=== PATIENT | male | born 1945 | race Caucasian/White ===

== ENCOUNTER → 2023-07-15 11:04 | Outpatient (REF) | payer OTHER, SELFPAY | LOC: RAD 11:04 | PROVIDERS: ATTENDING PHYSICIAN Internal Medicine Cardiovascular Disease; FAMILY PHYSICIAN Family Medicine | DX: I10 Essential (primary) hypertension (principal); R06.02 Shortness of breath; Z95.5 Presence of coronary angioplasty implant and graft | CPT/HCPCS: 71046 ==

== ENCOUNTER → 2023-09-12 12:24 | Outpatient (REF) | payer OTHER, SELFPAY | LOC: RSP 12:24 | PROVIDERS: ATTENDING PHYSICIAN Internal Medicine Cardiovascular Disease; FAMILY PHYSICIAN Family Medicine | DX: I10 Essential (primary) hypertension (principal); R06.02 Shortness of breath; Z95.2 Presence of prosthetic heart valve | CPT/HCPCS: 94727; 94729; 88738; 94010 ==

== ENCOUNTER → 2024-01-13 09:59 | Outpatient (REF) | payer OTHER, SELFPAY | LOC: RCS 09:59 | PROVIDERS: ATTENDING PHYSICIAN Internal Medicine Cardiovascular Disease; FAMILY PHYSICIAN Family Medicine | DX: I10 Essential (primary) hypertension (principal); I25.10 Atherosclerotic heart disease of native coronary artery without angina pectoris; R06.02 Shortness of breath; Z95.5 Presence of coronary angioplasty implant and graft; I44.7 Left bundle-branch block, unspecified; R06.00 Dyspnea, unspecified; R56.9 Unspecified convulsions | CPT/HCPCS: 93225; 93226 ==

== ENCOUNTER → 2024-01-17 14:50 | Outpatient (REF) | payer OTHER, SELFPAY | LOC: RCS 14:50 | PROVIDERS: ATTENDING PHYSICIAN Internal Medicine Cardiovascular Disease | DX: I10 Essential (primary) hypertension (principal); I25.10 Atherosclerotic heart disease of native coronary artery without angina pectoris; R06.02 Shortness of breath; Z95.5 Presence of coronary angioplasty implant and graft; I44.7 Left bundle-branch block, unspecified | CPT/HCPCS: 93306 ==

== ENCOUNTER → 2024-11-19 09:05 | Outpatient (REF) | payer OTHER, SELFPAY | LOC: HWRAD 09:05 | PROVIDERS: ATTENDING PHYSICIAN Pain Medicine Interventional Pain Medicine; FAMILY PHYSICIAN Family Medicine | DX: M54.16 Radiculopathy, lumbar region (principal) | CPT/HCPCS: 72131 ==

== ENCOUNTER → 2024-12-25 15:00 | Outpatient (REF) | payer OTHER, SELFPAY | LOC: RCS 15:00 | PROVIDERS: ATTENDING PHYSICIAN Pain Medicine Interventional Pain Medicine; FAMILY PHYSICIAN Family Medicine | DX: Z01.818 Encounter for other preprocedural examination (principal) | CPT/HCPCS: 93005 ==

== ENCOUNTER 2025-05-10 18:52 | Emergency (ER) | payer OTHER, SELFPAY ==
[2025-05-10 18:59] VITALS: BP 122/78
[2025-05-10 19:11] LABS: Urine Character Cloudy (Clear)
[2025-05-10 19:20] LABS: Urine Squamous Cell 0-2 /LPF (Few)
[2025-05-10 19:21] LABS: Urine Red Blood Cell 70-80 /HPF (0-2); Urine White Cell 30-40 /HPF (0-5)
[2025-05-10 20:20] VITALS: BMI 27.9
--- NOTE | 2025-05-10 20:36 | ED.GENMED ---
History of Present Illness
General
Chief Complaint: Male Genito-Urinary Symptoms
Time Seen by Provider: 05/10/25 20:16
History of Present Illness
History of Present Illness:
Augustine is an 80-year-old male who presents today with new onset dysuria and urinary frequency that began around 11 AM this morning. He reports suprapubic pain that has become constant in nature. States he feels that he needs to void constantly but
nothing now comes out. Reports low back pain that is similar in nature to his chronic low back pain.
Past History
Past History
ED Past Medical History: Other (Hiatal hernia, seizure, traumatic brain injury)
Social History
Tobacco: Non-smoker
Personal:
Phy Exam
General Physical Exam
General Presentation: well appearing and no apparent distress
General Skin: warm and dry
General Habitus: normal
General Mental: alert
General Hydration: appears well hydrated
ENT Exam
ENT Exam: EOMI, pharynx normal, neck supple and normocephalic
Eye Exam
Eye Exam: PERRL, cornea clear and conjunctiva normal
Cardiovascular Exam
Cardiovascular Exam: regular rate/rhythm, no edema, no murmur and normal peripheral pulses
Pulmonary Exam
Pulmonary Exam: lungs clear, no respiratory distress, no rales, no crackles, no rhonchi, no stridor, no wheezing and no cough
Gastrointestinal Exam
Gastrointestinal Exam: normal bowel sounds, non tender, soft, no organomegaly, no pulsatile mass and non distended
Genitourinary Exam Male
Exam Male: other (suprapubic tenderness)
Neurological Exam
Neurological Exam: alert, oriented x3, no motor deficits and speech normal
Musculoskeletal Exam
Musculoskeletal Exam: full ROM, back pain and no edema
Skin Exam
Skin Exam: normal color, warm/dry, no rash and no petechia
Psychiatric Exam
Psychiatric Exam: normal mood/affect
Course
Orders/Labs/Results
Orders:
Orders
05/10/25 19:05
Urine Microscopic Reflex Cult Urgent
Urine Reflex Culture from [facility] [Urinalysis Reflex To Culture] Urgent
Date Specimen was Collected: 05/10/25
Time Specimen was Collected: 19:
Urine Culture Urgent
LYNNETTE Source: U
Specimen Description:
Date Specimen was Collected: 05/10/25
Time Specimen was Collected: :
05/10/25 20:32
Ciprofloxacin HCl [Cipro] 500 mg PO ONCE ONE
Abnormal Lab Results
05/10/25
19:05
Ur Occult Blood Reflex 4+ A
(Negative)
Urine Nitrite (Reflex) Positive A
(Negative)
Leukocyte Esterase Rfl 3+ A
(Negative)
Urine RBC 70-80 A /HPF
(0-2)
Urine WBC (Reflex) 30-40 A /HPF
(0-5)
Urine Bacteria (Reflex) Many A
(Negative)
Urine Albumin (Reflex) 3+ A
(Neg - Trace)
Vital Signs
Initial and Last Documented VS:
Initial Vital Signs
Temp Pulse Resp BP Pulse Ox
36.8 C 88 20 122/78 98
05/10/25 18:59 05/10/25 18:59 05/10/25 18:59 05/10/25 18:59 05/10/25 18:59
Last Documented Vital Signs
Temp Pulse Resp BP Pulse Ox
36.8 C 88 20 122/78 98
05/10/25 18:59 05/10/25 18:59 05/10/25 18:59 05/10/25 18:59 05/10/25 18:59
MDM/Problems Addressed
Differential Diagnosis Includes:
Urinalysis obtained and reviewed - positive for UTI. Reflexed to culture. Unclear if back pain is related to early pyelonephritis or chronic back pain. Will treat patient has a complicated UTI given he is male and has associated pain. Cipro given in
ER and rx sent. Return precautions discussed.
*Pulse Oximetry
SaO2: 98
Oxygen Mode of Delivery: Room air
Patient hypoxic: no
*Critical Care Note
Total Time (30-74mins, 75-104mins- exclusive of procedures): Not Applicable
ED Attending Note
-
Portions of this chart may have been created with voice recognition software.� Occasional wrong word or��sound alike� substitutions may have occurred due to the inherent limitations of voice recognition software.
Discharge Plan
Departure
Patient Disposition: Home (Routine Discharge)
Date of Disposition: 05/10/25
Time of Disposition: 20:33
Patient with high blood pressure during this ER visit?: No
Discharge Problem:
Acute UTI
Instructions: Urinary tract infection in adults - ED (DC)
Prescriptions:
New
ciprofloxacin HCl [Cipro] 500 mg tablet
500 mg PO BID 7 Days Qty: 14 0RF
No Action
levetiracetam 500 MG tablet
500 mg PO BID
atorvastatin 80 MG tablet
80 mg PO QPM Qty: 90 3RF
nicotine 14 MG patch 24 hour
14 mg transdermal DAILY Qty: 30 5RF
clopidogrel 75 MG tablet
75 mg PO DAILY Qty: 90 3RF
aspirin 81 MG tablet,delayed release (DR/EC)
81 mg PO DAILY Qty: 0 0RF
nitroglycerin 0.4 MG tablet, sublingual
0.4 mg sublingual [id number] PRN (Reason: Chest pain) Qty: 60 2RF
lisinopril 2.5 MG tablet
2.5 mg PO DAILY Qty: 90 3RF
metoprolol succinate 50 MG tablet extended release 24 hr
50 mg PO DAILY Qty: 90 3RF
famotidine 40 MG tablet
40 mg PO DAILY Qty: 90 3RF
Referrals:
UNKNOWN - PT DOES,NOT KNOW [Unknown Provider]
Activity Restrictions/Additional Instructions:
A prescription for the antibiotic ciprofloxacin has been sent to your pharmacy. You should take this twice daily for 7 days. Is important that you take the entire course of antibiotics even if you begin to feel better. Follow-up with your primary
care physician within 1 week regarding this ER visit. Return to the ER if you develop new onset of back pain, symptoms do not improve within several days, or you develop fever that does not respond to Tylenol or ibuprofen.
Interventions
Interventions:
*Risk Screen - Suicide Last Done: 05/10/25 18:53
*General Assessment Last Done: 05/10/25 18:59
*Neglect/Abuse Screening Last Done: 05/10/25 20:22
*ED COVID-19 Vaccine History Last Done: 05/10/25 20:22
*ED Influenza Vaccine History Last Done: 05/10/25 20:22
[facility] Risk Assessment Tool Last Done: 05/10/25 20:21
ED-Male Genitourinary Assessment Last Done: 05/10/25 20:20
Discharge Date and Time
Print Language: MALAWIAN
[2025-05-10] MEDS: CIPRO 500 MG PO (20:56)
[2025-05-10 21:03] VITALS: BP 124/70
== END 2025-05-10 21:04 | disposition home or self-care (01) ==
LOC: EMR 18:52
PROVIDERS: Emergency Medicine; EMERGENCY PHYSICIAN Emergency Medicine; FAMILY PHYSICIAN Family Medicine
DX: N39.0 Urinary tract infection, site not specified (principal); G89.29 Other chronic pain; M54.50 Low back pain, unspecified
CPT/HCPCS: 99283; 81003; 81015; 87077; 87086; 87186

== ENCOUNTER → 2025-05-17 12:09 | Outpatient (REF) | payer OTHER, SELFPAY | LOC: RAD 12:09 | PROVIDERS: ATTENDING PHYSICIAN Student in an Organized Health Care Education/Training Program | DX: M25.562 Pain in left knee (principal) | CPT/HCPCS: 73564 ==